=== PATIENT | female | born 1980 | race American Indian/Alaskan Native ===

== ENCOUNTER 2018-03-03 23:19 | Emergency (ER) | payer MEDICAID ==
[2018-03-03 23:24] VITALS: BP 137/80
[2018-03-03] MEDS ORDERED: DUONEB *Not for PRN Use IH ONE (23:44)
--- NOTE | 2018-03-04 00:17 | Emergency Department Report ---
<SANGITA FLORES - Last Filed: 03/04/18 01:49> ED Asthma HPI - General Chief Complaint: Dyspnea/Respdistress Stated Complaint: ASTHMA Time Seen by Provider: 03/04/18 00:08 Source: patient Mode of arrival: Ambulatory Limitations: No Limitations - History of Present Illness Initial Comments: 37-year-old [place] female comes into the emergency room complaining of shortness of breathing. Patient reports that she's been coughing with no fever no chills for the last few days. Patient reports that she's been out of her albuterol and nebulizer medication for the last 2 weeks. She reports that she is recently moved here from [place] and does not have any medication as well as her hypertensive medicines she has ran out. She reports that she can hear herself wheeze. MD Complaint: shortness of breath, wheezing -: days(s) (3 for coughing and wheezing), week(s) (2 that has ran out of her medication) Asthma History: history of frequent attac Context: ran out of meds Associated Symptoms: denies: productive cough, dry cough, fever, chest pain, leg edema - Related Data Current Asthma Therapy: none Previous Rx's Medication Instructions Recorded Last Taken Type ALBUTEROL Inhaler [ProAir HFA 2 puff IH QID PRN #1 inhalation 03/04/18 Unknown Rx Inhaler] ALBUTEROL NEB's [Proventil 0.083% 2.5 mg IH TID PRN #1 box 03/04/18 Unknown Rx NEBS] Prednisone [predniSONE 10 mg 10 mg PO .TAPER #1 tab.ds.pk 03/04/18 Unknown Rx (6-Day Pack, 21 Tabs)] amLODIPine [Norvasc] 5 mg PO DAILY #30 tab 03/04/18 Unknown Rx Allergies Allergy/AdvReac Type Severity Reaction Status Date / Time Penicillins Allergy Hives Verified 03/03/18 23:43 ED Review of Systems ROS: Stated complaint: ASTHMA Other details as noted in HPI Constitutional: denies: chills, fever Eyes: denies: eye pain, eye discharge, vision change Respiratory: cough, shortness of breath, wheezing Cardiovascular: denies: chest pain, palpitations Endocrine: no symptoms reported Gastrointestinal: denies: abdominal pain, nausea, diarrhea ED Past Medical Hx - Past Medical History Previous Medical History?: Yes Hx Hypertension: Yes Hx Asthma: Yes - Surgical History Past Surgical History?: No - Social History Smoking Status: Current Every Day Smoker Substance Use Type: None - Medications Home Medications: Home Medications Medication Instructions Recorded Confirmed Last Taken Type ALBUTEROL Inhaler [ProAir HFA 2 puff IH QID PRN #1 inhalation 03/04/18 Unknown Rx Inhaler] ALBUTEROL NEB's [Proventil 0.083% 2.5 mg IH TID PRN #1 box 03/04/18 Unknown Rx NEBS] Prednisone [predniSONE 10 mg 10 mg PO .TAPER #1 tab.ds.pk 03/04/18 Unknown Rx (6-Day Pack, 21 Tabs)] amLODIPine [Norvasc] 5 mg PO DAILY #30 tab 03/04/18 Unknown Rx ED Physical Exam - General Limitations: No Limitations General appearance: alert, in no apparent distress - Head Head exam: Present: atraumatic, normocephalic - Eye Eye exam: Present: normal appearance, PERRL, EOMI - ENT ENT exam: Present: mucous membranes moist - Neck Neck exam: Present: normal inspection, full ROM. Absent: lymphadenopathy - Respiratory Respiratory exam: Present: wheezes, rhonchi - Cardiovascular Cardiovascular Exam: Present: regular rate, normal rhythm. Absent: systolic murmur, diastolic murmur, rubs, gallop - GI/Abdominal GI/Abdominal exam: Present: soft, normal bowel sounds ED Course Vital Signs 03/03/18 03/03/18 23:17 23:40 Temperature 99.9 F H 99.9 F H Pulse Rate 81 82 Respiratory 18 Rate Blood Pressure 137/80 137/80 O2 Sat by Pulse 97 97 Oximetry ED Medical Decision Making - Medical Decision Making Patient's been evaluated by this provider fast track. Patient has been given a DuoNeb while in triage. Solu-Medrol 125 mg IM to be given We'll discharge patient on albuterol nebulizer as well as pro-air inhaler. Patient reports that she takes nifedipine 30 mg by mouth but he gives her headache. Discussed the patient I will switch her to amlodipine 5 mg by mouth daily. Patient verbalizes understanding Critical care attestation.: If time is entered above; I have spent that time in minutes in the direct care of this critically ill patient, excluding procedure time. ED Disposition Disposition: [id number] TO HOME OR SELFCARE Is pt being admited?: No Does the pt Need Aspirin: No Condition: Stable Instructions: Asthma (ED), Hypertension (ED) Additional Instructions: These take medication as prescribed. Take blood pressure medicine medication as prescribed and follow up with [facility] Prescriptions: ALBUTEROL Inhaler [ProAir HFA Inhaler] 2 puff IH QID PRN #1 inhalation PRN Reason: Shortness Of Breath ALBUTEROL NEB's [Proventil 0.083% NEBS] 2.5 mg IH TID PRN #1 box PRN Reason: Wheezing amLODIPine [Norvasc] 5 mg PO DAILY #30 tab Prednisone [predniSONE 10 mg (6-Day Pack, 21 Tabs)] 10 mg PO .TAPER #1 tab.ds.pk Referrals: ALIVIA MCKINNEY MD [Primary Care Provider] - 3-5 Days <ELYSE ROBERT. - Last Filed: 03/04/18 11:36> ED Medical Decision Making - Medical Decision Making I was available for consultations at all times during the patient stay. I did not personally see and was not involved in the care of the patient. Toy Robert MD
== END 2018-03-04 02:01 | disposition home or self-care (01) ==
LOC: ED 23:19
DX: R06.02 Shortness of breath (principal); R05 Cough; I10 Essential (primary) hypertension; J45.909 Unspecified asthma, uncomplicated; F17.200 Nicotine dependence, unspecified, uncomplicated; Z88.0 Allergy status to penicillin
CPT/HCPCS: 93005; 93010; 94640; 96372; 99283; J2930